=== PATIENT | female | born 1975 | race Caucasian/White ===

== ENCOUNTER 2018-03-04 08:59 | Emergency (ER) | payer SELFPAY ==
[~2018-03-04] VITALS: Ht 160 cm; Wt 66.0 kg
[2018-03-04] MEDS ORDERED: KETOROLAC 60MG/2ML VIAL IM ONE (09:45)
[2018-03-04 11:55] VITALS: BP 120/66
== END 2018-03-04 12:04 | disposition home or self-care (01) ==
LOC: ER 09:52
DX: S83.91XA Sprain of unspecified site of right knee, initial encounter (principal); X58.XXXA Exposure to other specified factors, initial encounter; Y93.89 Activity, other specified; Y92.89 Other specified places as the place of occurrence of the external cause; Y99.8 Other external cause status
CPT/HCPCS: 73562; 81025; 93971; 96372; 99284; J1885